=== PATIENT | male | born 1955 | race Caucasian/White ===

== ENCOUNTER 2018-07-04 14:42 | Inpatient (IN) | payer MEDICARE, MEDICAID ==
[2018-07-04] MEDS: SODIUM CHLORIDE 0.9% FLUSH 10 ML SOL IV PRN (15:14)
[2018-07-04 15:45] LABS: ABG PH 7.56 (7.35-7.45)
[2018-07-04 15:49] LABS: HEMATOCRIT 38 % (39-53); HEMOGLOBIN 12.8 gm/dl (13.5-17.7); MEAN CORPUSCULAR HEMOGLOBIN 28.2 pg (27.0-32.0); MEAN CORPUSCULAR HGB CONC 33.7 gm/dl (32.0-36.0); MEAN CORPUSCULAR VOLUME 84 fL (80-100)
[2018-07-04 15:52] LABS: ALBUMIN 1.6 gm/dl (3.4-5.0); ALKALINE PHOSPHATASE 156 IU/L (46-116); ALT 61 IU/L (14-63); AST 82 IU/L (15-37); BILIRUBIN,TOTAL 1.1 mg/dl (0.2-1.0); BLOOD UREA NITROGEN 24 mg/dl (7-18); CALCIUM 8.6 mg/dl (8.5-10.1); CARBON DIOXIDE 27.8 mEq/L (21-32); CHLORIDE 91 mMol/L (98-107); CREATININE 1.08 mg/dl (0.80-1.30); GLUCOSE 122 mg/dl (74-106); POTASSIUM 4.4 mMol/L (3.5-5.1); SODIUM 127 mMol/L (136-145); TOTAL PROTEIN 7.2 gm/dl (6.4-8.2); TROP I < 0.017 ng/ml (0.000-0.056)
[2018-07-04 15:55] LABS: LACTIC ACID 2.9 mMol/L (0.0-2.0)
[2018-07-04] MEDS ORDERED: DEXTROSE/SALINE 0.9% 1,000 ML IV ONE (16:33)
[2018-07-04 16:35] LABS: ANISOCYTOSIS SLIGHT; BAND NEUTROPHILS % (MANUAL) 2 %; BASOPHILS % (MANUAL) 0 % (0-3); EOSINOPHILS % (MANUAL) 0 % (0-9); LYMPHOCYTES % (MANUAL) 2 % (10-50); MONOCYTES % (MANUAL) 5 % (0-12); NEUTROPHILS % (MANUAL) 91 % (37-80)
[2018-07-04] MEDS ORDERED: AZITHROMYCIN 500 MG PDS 500 MG in SODIUM CHLORIDE 0.9% 250 ML 250 ML IV SCH (16:45)
[2018-07-04] MEDS ORDERED: CEFTRIAXONE 1 GM PDS 1 GM in SODIUM CHLORIDE 0.9% 50 ML 50 ML IV SCH (17:30)
[2018-07-04] MEDS ORDERED: SODIUM CHLORIDE 0.9% 250 ML 250 ML IV ONE (17:45)
[2018-07-04] MEDS ORDERED: AZITHROMYCIN 500 MG PDS IV ONE (17:45)
[2018-07-04] MEDS ORDERED: SODIUM CHLORIDE 0.9% 50 ML 50 ML IV ONE (19:16)
[2018-07-04] MEDS ORDERED: CEFTRIAXONE 1 GM PDS ONE (19:16)
[2018-07-04] MEDS: ACETAMINOPHEN 500 MG 500 MG TAB PO PRN (20:59)
[2018-07-04] MEDS: SODIUM CHLORIDE 0.9% 1000ML 1,000 ML IV SCH (20:59)
[2018-07-04] MEDS: ALBUTEROL/IPRATROPIUM 1 VIAL SOL INH SCH (21:00)
[2018-07-04] MEDS ORDERED: Non-Formulary Medication MISC (Flecainide Acetate 50 mg) PO SCH (21:00)
[2018-07-04] MEDS: SOLUMEDROL 125 MG/2 ML 125 MG/2 ML PDS IV SCH (21:00)
[2018-07-04] MEDS: DOXYCYCLINE 100 MG TAB PO SCH (21:01)
[2018-07-04] MEDS: LORAZEPAM 0.5 MG TAB PO PRN (21:04)
[2018-07-04] MEDS ORDERED: CODEINE/GUAIFENESIN 5 ML ML ONE (21:15)
[2018-07-04] MEDS: CODEINE/GUAIFENESIN 5 ML ML PO PRN (21:38)
[2018-07-04 22:39] LABS: ABG PH 7.51 (7.35-7.45)
[2018-07-04 22:42] LABS: CALCIUM 7.6 mg/dl (8.5-10.1); CARBON DIOXIDE 23.4 mEq/L (21-32); CREATININE 0.93 mg/dl (0.80-1.30); POTASSIUM 3.7 mMol/L (3.5-5.1)
[2018-07-05] MEDS: ALBUTEROL/IPRATROPIUM 1 VIAL SOL INH SCH ×4 (02:40→20:38)
[2018-07-05] MEDS: SOLUMEDROL 125 MG/2 ML 125 MG/2 ML PDS IV SCH ×4 (02:41→20:41)
[2018-07-05] MEDS: CODEINE/GUAIFENESIN 5 ML ML PO PRN ×2 (04:31→22:14)
[2018-07-05] MEDS: SODIUM CHLORIDE 0.9% FLUSH 10 ML SOL IV PRN (04:55)
[2018-07-05] MEDS: SODIUM CHLORIDE 0.9% 1000ML 1,000 ML IV SCH ×3 (06:37→22:16)
[2018-07-05 07:21] LABS: CALCIUM 7.6 mg/dl (8.5-10.1); CARBON DIOXIDE 26.2 mEq/L (21-32); CREATININE 0.7 mg/dl (0.80-1.30); POTASSIUM 3.8 mMol/L (3.5-5.1)
[2018-07-05 07:27] LABS: HEMATOCRIT 31 % (39-53); MEAN CORPUSCULAR HEMOGLOBIN 27.9 pg (27.0-32.0); MEAN CORPUSCULAR HGB CONC 32.8 gm/dl (32.0-36.0); MEAN CORPUSCULAR VOLUME 85 fL (80-100)
[2018-07-05 08:10] LABS: BAND NEUTROPHILS % (MANUAL) 26 %; BASOPHILS % (MANUAL) 0 % (0-3); BURR CELLS PRESENT; EOSINOPHILS % (MANUAL) 0 % (0-9); LYMPHOCYTES % (MANUAL) 2 % (10-50); MONOCYTES % (MANUAL) 7 % (0-12); NEUTROPHILS % (MANUAL) 65 % (37-80); PLATELET MORPHOLOGY COMMENT RARE GIANT FORMS; POIKILOCYTOSIS SLIGHT AMT
[2018-07-05] MEDS ORDERED: ENOXAPARIN 40 MG SOL SC SCH ×2 (09:00→21:00)
[2018-07-05] MEDS ORDERED: CEFTRIAXONE 1 GM PDS 1 GM in SODIUM CHLORIDE 0.9% 50 ML 50 ML IV SCH (09:00)
[2018-07-05] MEDS ORDERED: CEFTRIAXONE 1 GM PDS ONE ×2 (09:14→18:44)
[2018-07-05] MEDS ORDERED: SODIUM CHLORIDE 0.9% 50 ML 50 ML IV ONE ×2 (09:14→18:44)
[2018-07-05] MEDS: ASPIRIN 325 MG TAB PO SCH (09:38)
[2018-07-05] MEDS: DOXYCYCLINE 100 MG TAB PO SCH ×2 (09:38→20:41)
[2018-07-05] MEDS: FLECAINIDE ACETATE 50 MG TAB PO SCH ×2 (09:38→20:42)
[2018-07-05] MEDS: LORAZEPAM 0.5 MG TAB PO PRN ×2 (09:46→21:27)
[2018-07-05] MEDS: SODIUM CHLORIDE 0.9% FLUSH 10 ML SOL IV SCH ×2 (13:45→20:59)
[2018-07-05] MEDS: ACETAMINOPHEN 500 MG 500 MG TAB PO PRN (15:15)
[2018-07-05] MEDS: CEFTRIAXONE 1 GM PDS 1 GM in SODIUM CHLORIDE 0.9% 50 ML 50 ML IV SCH (18:50)
[2018-07-05] MEDS: ENOXAPARIN 40 MG SOL SC SCH (21:26)
[2018-07-06] MEDS: SOLUMEDROL 125 MG/2 ML 125 MG/2 ML PDS IV SCH ×4 (02:56→20:38)
[2018-07-06] MEDS: ALBUTEROL/IPRATROPIUM 1 VIAL SOL INH SCH ×4 (02:56→20:26)
[2018-07-06] MEDS: SODIUM CHLORIDE 0.9% 1000ML 1,000 ML IV SCH ×4 (05:09→18:46)
[2018-07-06] MEDS: CODEINE/GUAIFENESIN 5 ML ML PO PRN ×2 (06:02→22:24)
[2018-07-06] MEDS: SODIUM CHLORIDE 0.9% FLUSH 10 ML SOL IV SCH ×3 (07:14→20:49)
[2018-07-06 07:31] LABS: CALCIUM 7.4 mg/dl (8.5-10.1); CARBON DIOXIDE 23.2 mEq/L (21-32); CREATININE 0.63 mg/dl (0.80-1.30); HEMATOCRIT 29 % (39-53); HEMOGLOBIN 9.7 gm/dl (13.5-17.7); MEAN CORPUSCULAR HEMOGLOBIN 28.1 pg (27.0-32.0); MEAN CORPUSCULAR HGB CONC 33.5 gm/dl (32.0-36.0); MEAN CORPUSCULAR VOLUME 84 fL (80-100); POTASSIUM 3.5 mMol/L (3.5-5.1)
[2018-07-06 08:21] LABS: ANISOCYTOSIS SLIGHT; BAND NEUTROPHILS % (MANUAL) 3 %; BASOPHILS % (MANUAL) 0 % (0-3); EOSINOPHILS % (MANUAL) 0 % (0-9); LYMPHOCYTES % (MANUAL) 4 % (10-50); MONOCYTES % (MANUAL) 2 % (0-12); NEUTROPHILS % (MANUAL) 91 % (37-80)
[2018-07-06] MEDS: DOXYCYCLINE 100 MG TAB PO SCH ×2 (09:09→20:38)
[2018-07-06] MEDS: ASPIRIN 325 MG TAB PO SCH (09:09)
[2018-07-06] MEDS: FLECAINIDE ACETATE 50 MG TAB PO SCH ×2 (09:09→20:38)
[2018-07-06] MEDS: LORAZEPAM 0.5 MG TAB PO PRN ×2 (09:28→22:34)
[2018-07-06] MEDS ORDERED: SODIUM CHLORIDE 0.9% 50 ML 50 ML IV ONE (17:23)
[2018-07-06] MEDS ORDERED: CEFTRIAXONE 1 GM PDS ONE (17:23)
[2018-07-06] MEDS: CEFTRIAXONE 1 GM PDS 1 GM in SODIUM CHLORIDE 0.9% 50 ML 50 ML IV SCH (17:31)
[2018-07-06] MEDS: ENOXAPARIN 40 MG SOL SC SCH (20:35)
[2018-07-07] MEDS: SODIUM CHLORIDE 0.9% 1000ML 1,000 ML IV SCH ×2 (02:01→22:29)
[2018-07-07] MEDS: ALBUTEROL/IPRATROPIUM 1 VIAL SOL INH SCH ×4 (02:11→20:12)
[2018-07-07] MEDS: SOLUMEDROL 125 MG/2 ML 125 MG/2 ML PDS IV SCH ×4 (02:21→20:11)
[2018-07-07] MEDS: ALBUTEROL NEB SOL 2.5MG/3ML 1 VIAL SOL NEB PRN ×2 (04:12→13:26)
[2018-07-07] MEDS: CODEINE/GUAIFENESIN 5 ML ML PO PRN ×2 (04:33→20:32)
[2018-07-07] MEDS: SODIUM CHLORIDE 0.9% FLUSH 10 ML SOL IV SCH ×4 (05:20→22:38)
[2018-07-07 07:11] LABS: *FOLATE 4.2 ng/mL (2.6-20.0)
[2018-07-07] MEDS: SODIUM CHLORIDE 0.9% FLUSH 10 ML SOL IV PRN ×2 (08:33→20:14)
[2018-07-07] MEDS: FLECAINIDE ACETATE 50 MG TAB PO SCH ×2 (08:34→20:13)
[2018-07-07] MEDS: ASPIRIN 325 MG TAB PO SCH (08:34)
[2018-07-07] MEDS: DOXYCYCLINE 100 MG TAB PO SCH ×2 (08:34→20:13)
[2018-07-07] MEDS ORDERED: SODIUM CHLORIDE 0.9% FLUSH 10 ML SOL IV PRN (09:32)
[2018-07-07] MEDS: CLONAZEPAM 0.5 MG TAB PO PRN ×2 (10:27→20:32)
[2018-07-07] MEDS ORDERED: SODIUM CHLORIDE 0.9% 50 ML 50 ML IV ONE (17:03)
[2018-07-07] MEDS ORDERED: CEFTRIAXONE 1 GM PDS ONE (17:03)
[2018-07-07] MEDS: CEFTRIAXONE 1 GM PDS 1 GM in SODIUM CHLORIDE 0.9% 50 ML 50 ML IV SCH (17:22)
[2018-07-07 18:39] LABS: *ALBUMIN % SEE SCAN REPORT; *ELP TOTAL PROTEIN SEE SCAN REPORT
[2018-07-07] MEDS: ENOXAPARIN 40 MG SOL SC SCH (20:14)
[2018-07-07 20:15] LABS: ABO A; ANTIBODY SCREEN Negative; RH TYPE Negative; UNIT TYPE A NEGATIVE
[2018-07-07 20:16] LABS: UNIT TYPE A NEGATIVE
[2018-07-07] MEDS: SODIUM CHLORIDE 0.9% 500 ML 500 ML IV SCH (21:11)
[2018-07-07] MEDS: FUROSEMIDE 40 MG SOL IV SCH (23:23)
[2018-07-08] MEDS: ALBUTEROL NEB SOL 2.5MG/3ML 1 VIAL SOL NEB PRN ×2 (00:16→16:52)
[2018-07-08] MEDS: SOLUMEDROL 125 MG/2 ML 125 MG/2 ML PDS IV SCH ×4 (02:20→22:20)
[2018-07-08] MEDS: FUROSEMIDE 40 MG SOL IV SCH (02:20)
[2018-07-08] MEDS: ALBUTEROL/IPRATROPIUM 1 VIAL SOL INH SCH ×4 (02:23→20:18)
[2018-07-08] MEDS: CODEINE/GUAIFENESIN 5 ML ML PO PRN ×2 (05:05→20:34)
[2018-07-08] MEDS: SODIUM CHLORIDE 0.9% FLUSH 10 ML SOL IV SCH ×3 (05:11→22:20)
[2018-07-08] MEDS: ASPIRIN 325 MG TAB PO SCH (09:57)
[2018-07-08] MEDS: DOXYCYCLINE 100 MG TAB PO SCH ×2 (09:57→20:24)
[2018-07-08] MEDS: FLECAINIDE ACETATE 50 MG TAB PO SCH ×2 (09:57→20:24)
[2018-07-08] MEDS: SODIUM CHLORIDE 0.9% FLUSH 10 ML SOL IV PRN (09:58)
[2018-07-08] MEDS: CLONAZEPAM 0.5 MG TAB PO PRN ×2 (10:02→20:34)
[2018-07-08] MEDS: VENLAFAXINE ER 37.5 MG CAPSULE PO SCH (12:48)
[2018-07-08] MEDS: SODIUM CHLORIDE 0.9% 500 ML 500 ML IV SCH (17:40)
[2018-07-08] MEDS ORDERED: CEFTRIAXONE 1 GM PDS ONE (17:41)
[2018-07-08] MEDS ORDERED: SODIUM CHLORIDE 0.9% 50 ML 50 ML IV ONE (17:41)
[2018-07-08] MEDS: CEFTRIAXONE 1 GM PDS 1 GM in SODIUM CHLORIDE 0.9% 50 ML 50 ML IV SCH (17:49)
[2018-07-08] MEDS: ENOXAPARIN 40 MG SOL SC SCH ×2 (20:23→20:40)
[2018-07-09] MEDS: ALBUTEROL/IPRATROPIUM 1 VIAL SOL INH SCH ×4 (02:21→20:51)
[2018-07-09] MEDS: ALBUTEROL NEB SOL 2.5MG/3ML 1 VIAL SOL NEB PRN ×2 (05:17→11:38)
[2018-07-09] MEDS: SODIUM CHLORIDE 0.9% FLUSH 10 ML SOL IV SCH ×5 (05:19→21:58)
[2018-07-09] MEDS: ASPIRIN 325 MG TAB PO SCH (08:41)
[2018-07-09] MEDS: DOXYCYCLINE 100 MG TAB PO SCH ×2 (08:42→20:50)
[2018-07-09] MEDS: FLECAINIDE ACETATE 50 MG TAB PO SCH ×2 (08:42→20:50)
[2018-07-09] MEDS: VENLAFAXINE ER 37.5 MG CAPSULE PO SCH (08:43)
[2018-07-09] MEDS: CLONAZEPAM 0.5 MG TAB PO PRN (08:47)
[2018-07-09] MEDS: SOLUMEDROL 125 MG/2 ML 125 MG/2 ML PDS IV SCH ×2 (10:24→21:58)
[2018-07-09] MEDS: CLONAZEPAM 0.5 MG TAB PO SCH ×2 (14:12→21:58)
[2018-07-09 14:27] LABS: *VITAMIN B12 642 pg/mL (211-911)
[2018-07-09] MEDS ORDERED: MENTHOLATUM TOP SCH (17:00)
[2018-07-09] MEDS ORDERED: SODIUM CHLORIDE 0.9% 50 ML 50 ML IV ONE (17:43)
[2018-07-09] MEDS ORDERED: CEFTRIAXONE 1 GM PDS ONE (17:43)
[2018-07-09] MEDS: CEFTRIAXONE 1 GM PDS 1 GM in SODIUM CHLORIDE 0.9% 50 ML 50 ML IV SCH (17:57)
[2018-07-09] MEDS: ENOXAPARIN 40 MG SOL SC SCH (20:51)
[2018-07-09] MEDS: CODEINE/GUAIFENESIN 5 ML ML PO PRN (21:08)
[2018-07-10] MEDS: ALBUTEROL NEB SOL 2.5MG/3ML 1 VIAL SOL NEB PRN (00:49)
[2018-07-10] MEDS: ALBUTEROL/IPRATROPIUM 1 VIAL SOL INH SCH ×4 (04:16→20:27)
[2018-07-10] MEDS: CLONAZEPAM 0.5 MG TAB PO SCH ×3 (06:55→22:23)
[2018-07-10] MEDS: SODIUM CHLORIDE 0.9% FLUSH 10 ML SOL IV SCH ×4 (06:55→22:23)
[2018-07-10] MEDS: ASPIRIN 325 MG TAB PO SCH (08:30)
[2018-07-10] MEDS: DOXYCYCLINE 100 MG TAB PO SCH ×2 (08:31→20:26)
[2018-07-10] MEDS: FLECAINIDE ACETATE 50 MG TAB PO SCH ×2 (08:31→20:26)
[2018-07-10] MEDS: SOLUMEDROL 125 MG/2 ML 125 MG/2 ML PDS IV SCH ×2 (11:26→22:23)
[2018-07-10] MEDS ORDERED: CEFTRIAXONE 1 GM PDS ONE (18:09)
[2018-07-10] MEDS ORDERED: SODIUM CHLORIDE 0.9% 50 ML 50 ML IV ONE (18:10)
[2018-07-10] MEDS: CEFTRIAXONE 1 GM PDS 1 GM in SODIUM CHLORIDE 0.9% 50 ML 50 ML IV SCH (18:18)
[2018-07-10] MEDS: ENOXAPARIN 40 MG SOL SC SCH (20:27)
[2018-07-10] MEDS: CODEINE/GUAIFENESIN 5 ML ML PO PRN (20:50)
[2018-07-11] MEDS: ALBUTEROL/IPRATROPIUM 1 VIAL SOL INH SCH ×4 (02:39→21:09)
[2018-07-11] MEDS: ALBUTEROL NEB SOL 2.5MG/3ML 1 VIAL SOL NEB PRN ×2 (04:58→18:24)
[2018-07-11] MEDS: SODIUM CHLORIDE 0.9% FLUSH 10 ML SOL IV SCH ×3 (04:58→21:08)
[2018-07-11] MEDS: CLONAZEPAM 0.5 MG TAB PO SCH ×3 (06:19→21:39)
[2018-07-11] MEDS: ASPIRIN 325 MG TAB PO SCH (08:25)
[2018-07-11] MEDS: DOXYCYCLINE 100 MG TAB PO SCH ×2 (08:25→21:08)
[2018-07-11] MEDS: FUROSEMIDE 20 MG TAB PO SCH (10:52)
[2018-07-11] MEDS: PREDNISONE 20 MG TAB PO SCH (10:52)
[2018-07-11 10:55] LABS: *FERRITIN 1068.2
[2018-07-11] MEDS: ACETAMINOPHEN 500 MG 500 MG TAB PO PRN (13:49)
[2018-07-11] MEDS: FLECAINIDE ACETATE 50 MG TAB PO SCH (15:14)
[2018-07-11] MEDS ORDERED: SODIUM CHLORIDE 0.9% 50 ML 50 ML IV ONE (17:23)
[2018-07-11] MEDS ORDERED: CEFTRIAXONE 1 GM PDS ONE (17:23)
[2018-07-11] MEDS: CEFTRIAXONE 1 GM PDS 1 GM in SODIUM CHLORIDE 0.9% 50 ML 50 ML IV SCH (17:38)
[2018-07-11] MEDS: ENOXAPARIN 40 MG SOL SC SCH (21:07)
[2018-07-11] MEDS: FAMOTIDINE 20 MG TAB PO SCH (21:08)
[2018-07-12] MEDS: FLECAINIDE ACETATE 50 MG TAB PO SCH ×2 (00:13→08:14)
[2018-07-12] MEDS: ALBUTEROL NEB SOL 2.5MG/3ML 1 VIAL SOL NEB PRN (00:21)
[2018-07-12] MEDS: ALBUTEROL/IPRATROPIUM 1 VIAL SOL INH SCH ×2 (02:48→08:31)
[2018-07-12] MEDS: SODIUM CHLORIDE 0.9% FLUSH 10 ML SOL IV PRN (03:06)
[2018-07-12] MEDS: SODIUM CHLORIDE 0.9% FLUSH 10 ML SOL IV SCH (05:07)
[2018-07-12] MEDS: CLONAZEPAM 0.5 MG TAB PO SCH (06:23)
[2018-07-12 07:17] LABS: CALCIUM 7.5 mg/dl (8.5-10.1); CARBON DIOXIDE 30.5 mEq/L (21-32); CREATININE 0.68 mg/dl (0.80-1.30); POTASSIUM 3.5 mMol/L (3.5-5.1)
[2018-07-12 07:23] LABS: HEMATOCRIT 40 % (39-53); HEMOGLOBIN 13.2 gm/dl (13.5-17.7); MEAN CORPUSCULAR HEMOGLOBIN 28.1 pg (27.0-32.0); MEAN CORPUSCULAR HGB CONC 32.6 gm/dl (32.0-36.0); MEAN CORPUSCULAR VOLUME 86 fL (80-100)
[2018-07-12 07:36] LABS: BAND NEUTROPHILS % (MANUAL) 4 %; BASOPHILS % (MANUAL) 0 % (0-3); EOSINOPHILS % (MANUAL) 2 % (0-9); LYMPHOCYTES % (MANUAL) 2 % (10-50); MONOCYTES % (MANUAL) 2 % (0-12); NEUTROPHILS % (MANUAL) 90 % (37-80); NORMAL RBCS PRESENT
[2018-07-12 08:02] VITALS: BP 128/75; TEMP 98
[2018-07-12] MEDS: FUROSEMIDE 20 MG TAB PO SCH (08:15)
[2018-07-12] MEDS: ASPIRIN 325 MG TAB PO SCH (08:15)
[2018-07-12] MEDS: DOXYCYCLINE 100 MG TAB PO SCH (08:16)
[2018-07-12] MEDS: FAMOTIDINE 20 MG TAB PO SCH (08:16)
[2018-07-12] MEDS: PREDNISONE 20 MG TAB PO SCH (08:17)
[2018-07-12 08:32] VITALS: PULSE 72; RESP 20
[2018-07-12 08:44] VITALS: O2SAT 90
== END 2018-07-12 11:45 | DRG 194 ==
LOC: ED 14:42 → ACUTE CARE 16:50 → UNDOADMIN 16:50 → ACUTE CARE 17:35
PROVIDERS: ADMIT Family Medicine; ATTEND Family Medicine
PROC: F01L0FZ Muscle Performance Assessment of Musculoskeletal System - Lower Back / Lower Extremity using Assistive, Adaptive, Supportive or Protective Equipment (ICD-10-PCS; principal; 2018-07-07)
PROC: F0130FZ Muscle Performance Assessment of Neurological System - Whole Body using Assistive, Adaptive, Supportive or Protective Equipment (ICD-10-PCS; 2018-07-07)
PROC: 30233N1 Transfusion of Nonautologous Red Blood Cells into Peripheral Vein, Percutaneous Approach (ICD-10-PCS; 2018-07-07)
DX: J18.1 Lobar pneumonia, unspecified organism (principal); R05 Cough; I47.1 Supraventricular tachycardia; J44.9 Chronic obstructive pulmonary disease, unspecified; R07.9 Chest pain, unspecified; R06.02 Shortness of breath; F41.8 Other specified anxiety disorders; D64.9 Anemia, unspecified
CPT/HCPCS: 36415; 36600; 71045; 80048; 80053; 82803; 83880; 84484; 85007; 85018; 85027; 86850; 86900; 86901; 86920; 87040; 87070; 87205; 93005; 93012; 94150; 94640; 94669; 94762; 96365; 99070; 99283; 99284; J0456; J0696; J1650; J1940; J2930; J7613; P9016; A9270-GY

== ENCOUNTER 2018-12-27 12:11 | Inpatient (IN) | payer MEDICARE, OTHER ==
[2018-12-27 12:29] LABS: BASOPHILS % (AUTO) 0 % (0-3); EOSINOPHILS % (AUTO) 0 % (0-9); HEMATOCRIT 37 % (39-53); HEMOGLOBIN 12.4 gm/dl (13.5-17.7); LYMPHOCYTES % (AUTO) 7.2 % (10-50); MEAN CORPUSCULAR HEMOGLOBIN 27.9 pg (27.0-32.0); MEAN CORPUSCULAR HGB CONC 33.2 gm/dl (32.0-36.0); MEAN CORPUSCULAR VOLUME 84 fL (80-100); MONOCYTES % (AUTO) 2.6 % (0-12); NEUTROPHILS % (AUTO) 89.9 % (37-80)
[2018-12-27 12:35] LABS: CALCIUM 9.3 mg/dl (8.5-10.1); CARBON DIOXIDE 29.5 mEq/L (21-32); CREATININE 1.81 mg/dl (0.80-1.30)
[2018-12-27 12:36] LABS: POTASSIUM 2.7 mMol/L (3.5-5.1)
[2018-12-27] MEDS ORDERED: SODIUM CHLORIDE 0.9% 1000ML 1,000 ML IV ONE (13:25)
[2018-12-27] MEDS ORDERED: POTASSIUM CHLORIDE 2 MEQ/ML 60 MEQ, LIDOCAINE HCL 1% MDV 2 ML in SODIUM CHLORIDE 0.9% 1... IV ONE (13:25)
[2018-12-27] MEDS ORDERED: CLONAZEPAM 0.5 MG TAB PO ONE (13:42)
[2018-12-27] MEDS ORDERED: POTASSIUM CHLORIDE 2 MEQ/ML SOL IV ONE (13:46)
[2018-12-27] MEDS ORDERED: LIDOCAINE HCL 1% MPF 30 SOL ONE (14:04)
[2018-12-27] MEDS ORDERED: ERTAPENEM SODIUM 1 GM PDS ONE (15:33)
[2018-12-27] MEDS ORDERED: SODIUM CHLORIDE 0.9% 50 ML 50 ML IV ONE (15:33)
[2018-12-27] MEDS: ERTAPENEM SODIUM 1 GM PDS 1 GM in SODIUM CHLORIDE 0.9% 50 ML 50 ML IV SCH (15:41)
[2018-12-27] MEDS ORDERED: ALBUTEROL/IPRATROPIUM 1 VIAL SOL INH SCH ×2 (17:00→21:00)
[2018-12-27] MEDS ORDERED: FUROSEMIDE 40 MG TAB PO PRN (18:04)
[2018-12-27] MEDS ORDERED: ALBUTEROL SULFATE 120 PUFF/17 GM ARO INH SCH ×2 (18:45→21:00)
[2018-12-27] MEDS ORDERED: ALBUTEROL HFA 60 PUFF/INHALER INH PRN (18:58)
[2018-12-27] MEDS: ALBUTEROL/IPRATROPIUM 1 VIAL SOL INH SCH (20:26)
[2018-12-27] MEDS ORDERED: RANITIDINE HCL 150 MG TAB PO SCH (21:00)
[2018-12-27] MEDS: Non-Formulary Medication MISC (Flecainide Acetate 50 mg) PO SCH (21:58)
[2018-12-27] MEDS: CLONAZEPAM 0.5 MG TAB PO PRN (21:58)
[2018-12-28] MEDS: ALBUTEROL NEB SOL 2.5MG/3ML 1 VIAL SOL NEB PRN ×2 (00:51→06:07)
[2018-12-28] MEDS: ACETAMINOPHEN 325 MG PO PRN ×4 (01:33→23:40)
[2018-12-28] MEDS: FAMOTIDINE 20 MG TAB PO SCH ×2 (06:07→17:21)
[2018-12-28 07:20] LABS: CALCIUM 8.2 mg/dl (8.5-10.1); CARBON DIOXIDE 26.3 mEq/L (21-32); CREATININE 1.25 mg/dl (0.80-1.30)
[2018-12-28] MEDS: ALBUTEROL/IPRATROPIUM 1 VIAL SOL INH SCH ×4 (08:21→21:15)
[2018-12-28] MEDS ORDERED: SODIUM CHLORIDE 0.9% 50 ML 50 ML IV ONE (10:31)
[2018-12-28] MEDS ORDERED: ERTAPENEM SODIUM 1 GM PDS ONE (10:31)
[2018-12-28] MEDS: ERTAPENEM SODIUM 1 GM PDS 1 GM in SODIUM CHLORIDE 0.9% 50 ML 50 ML IV SCH (10:42)
[2018-12-28] MEDS: POTASSIUM CHLORIDE 10 MEQ TER PO SCH ×2 (10:43→21:19)
[2018-12-28] MEDS: Non-Formulary Medication MISC (Flecainide Acetate 50 mg) PO SCH ×2 (10:44→21:19)
[2018-12-28] MEDS: CLONAZEPAM 0.5 MG TAB PO PRN ×2 (10:56→21:44)
[2018-12-28] MEDS: SODIUM CHLORIDE 0.9% FLUSH 10 ML SOL IV SCH ×2 (11:21→21:20)
[2018-12-29] MEDS: SODIUM CHLORIDE 0.9% FLUSH 10 ML SOL IV SCH ×4 (03:53→21:08)
[2018-12-29] MEDS: FAMOTIDINE 20 MG TAB PO SCH ×2 (07:18→17:19)
[2018-12-29] MEDS: ACETAMINOPHEN 325 MG PO PRN ×2 (07:40→19:57)
[2018-12-29] MEDS ORDERED: SODIUM CHLORIDE 0.9% 50 ML 50 ML IV ONE (08:53)
[2018-12-29] MEDS ORDERED: ERTAPENEM SODIUM 1 GM PDS ONE (08:53)
[2018-12-29] MEDS ORDERED: FUROSEMIDE 40 MG TAB PO SCH (09:00)
[2018-12-29] MEDS: ERTAPENEM SODIUM 1 GM PDS 1 GM in SODIUM CHLORIDE 0.9% 50 ML 50 ML IV SCH (09:01)
[2018-12-29] MEDS: POTASSIUM CHLORIDE 10 MEQ TER PO SCH ×2 (09:01→21:03)
[2018-12-29] MEDS: Non-Formulary Medication MISC (Flecainide Acetate 50 mg) PO SCH ×2 (09:02→21:02)
[2018-12-29] MEDS: CLONAZEPAM 0.5 MG TAB PO PRN ×2 (09:35→21:03)
[2018-12-29] MEDS: ALBUTEROL/IPRATROPIUM 1 VIAL SOL INH SCH ×4 (09:37→21:05)
[2018-12-30] MEDS: ACETAMINOPHEN 325 MG PO PRN ×2 (04:03→10:07)
[2018-12-30] MEDS: SODIUM CHLORIDE 0.9% FLUSH 10 ML SOL IV SCH ×4 (04:03→21:00)
[2018-12-30] MEDS: FAMOTIDINE 20 MG TAB PO SCH ×2 (07:00→16:42)
[2018-12-30 07:59] LABS: CALCIUM 8.1 mg/dl (8.5-10.1); CARBON DIOXIDE 27.7 mEq/L (21-32); CREATININE 0.73 mg/dl (0.80-1.30); POTASSIUM 4.4 mMol/L (3.5-5.1)
[2018-12-30 08:01] LABS: BASOPHILS % (AUTO) 0 % (0-3); EOSINOPHILS % (AUTO) 1 % (0-9); HEMATOCRIT 29 % (39-53); HEMOGLOBIN 9.8 gm/dl (13.5-17.7); LYMPHOCYTES % (AUTO) 7.1 % (10-50); MEAN CORPUSCULAR HEMOGLOBIN 29.1 pg (27.0-32.0); MEAN CORPUSCULAR HGB CONC 34.1 gm/dl (32.0-36.0); MEAN CORPUSCULAR VOLUME 85 fL (80-100); MONOCYTES % (AUTO) 4.9 % (0-12)
[2018-12-30] MEDS: ALBUTEROL/IPRATROPIUM 1 VIAL SOL INH SCH ×4 (08:05→20:35)
[2018-12-30] MEDS ORDERED: PREDNISONE 20 MG TAB PO SCH (09:00)
[2018-12-30] MEDS: Non-Formulary Medication MISC (Flecainide Acetate 50 mg) PO SCH ×2 (09:38→21:00)
[2018-12-30] MEDS: POTASSIUM CHLORIDE 10 MEQ TER PO SCH ×2 (09:39→21:00)
[2018-12-30] MEDS ORDERED: ERTAPENEM SODIUM 1 GM PDS ONE (09:43)
[2018-12-30] MEDS ORDERED: SODIUM CHLORIDE 0.9% 50 ML 50 ML IV ONE (09:44)
[2018-12-30] MEDS: SOLUMEDROL 125 MG/2 ML 125 MG/2 ML PDS IV SCH ×2 (09:45→13:34)
[2018-12-30] MEDS: ERTAPENEM SODIUM 1 GM PDS 1 GM in SODIUM CHLORIDE 0.9% 50 ML 50 ML IV SCH (09:46)
[2018-12-30] MEDS: CLONAZEPAM 0.5 MG TAB PO PRN ×2 (10:07→21:05)
[2018-12-30] MEDS: CLOTRIMAZOLE 1% CREAM TOP SCH (21:09)
[2018-12-31 04:34] VITALS: TEMP 97.7
[2018-12-31] MEDS: SODIUM CHLORIDE 0.9% FLUSH 10 ML SOL IV SCH (04:34)
[2018-12-31] MEDS: FAMOTIDINE 20 MG TAB PO SCH (06:49)
[2018-12-31 07:18] LABS: BASOPHILS % (AUTO) 0 % (0-3); EOSINOPHILS % (AUTO) 0 % (0-9); HEMATOCRIT 27 % (39-53); HEMOGLOBIN 9.4 gm/dl (13.5-17.7); LYMPHOCYTES % (AUTO) 4.2 % (10-50); MEAN CORPUSCULAR HEMOGLOBIN 29.3 pg (27.0-32.0); MEAN CORPUSCULAR HGB CONC 34.5 gm/dl (32.0-36.0); MEAN CORPUSCULAR VOLUME 85 fL (80-100); MONOCYTES % (AUTO) 2.2 % (0-12); NEUTROPHILS % (AUTO) 93.4 % (37-80)
[2018-12-31 07:31] LABS: CALCIUM 8.2 mg/dl (8.5-10.1); CARBON DIOXIDE 26.6 mEq/L (21-32); CREATININE 0.63 mg/dl (0.80-1.30); POTASSIUM 4.2 mMol/L (3.5-5.1)
[2018-12-31 08:02] VITALS: BP 104/68; O2SAT 97
[2018-12-31] MEDS: ALBUTEROL/IPRATROPIUM 1 VIAL SOL INH SCH ×2 (08:13→12:56)
[2018-12-31] MEDS ORDERED: PREDNISONE 20 MG TAB PO SCH (09:00)
[2018-12-31] MEDS ORDERED: LEVOFLOXACIN 500 MG TAB PO SCH (09:00)
[2018-12-31 09:17] VITALS: PULSE 94; RESP 22
[2018-12-31] MEDS: ACETAMINOPHEN 325 MG PO PRN (09:17)
[2018-12-31] MEDS: POTASSIUM CHLORIDE 10 MEQ TER PO SCH (09:18)
[2018-12-31] MEDS: CLONAZEPAM 0.5 MG TAB PO PRN (09:18)
[2018-12-31] MEDS: CLOTRIMAZOLE 1% CREAM TOP SCH (09:20)
[2018-12-31] MEDS: Non-Formulary Medication MISC (Flecainide Acetate 50 mg) PO SCH (09:24)
== END 2018-12-31 13:10 | DRG 194 ==
LOC: ED 12:11 → ACUTE CARE 14:16 → UNDOADMIN 14:16 → ACUTE CARE 14:30
PROVIDERS: ADMIT Family Medicine; ATTEND Family Medicine
PROC: F01K5YZ Range of Motion and Joint Integrity Assessment of Musculoskeletal System - Upper Back / Upper Extremity using Other Equipment (ICD-10-PCS; principal; 2018-12-29)
PROC: F01K0FZ Muscle Performance Assessment of Musculoskeletal System - Upper Back / Upper Extremity using Assistive, Adaptive, Supportive or Protective Equipment (ICD-10-PCS; 2018-12-29)
PROC: F02Z0FZ Bathing/Showering Assessment using Assistive, Adaptive, Supportive or Protective Equipment (ICD-10-PCS; 2018-12-29)
PROC: F02Z3FZ Grooming/Personal Hygiene Assessment using Assistive, Adaptive, Supportive or Protective Equipment (ICD-10-PCS; 2018-12-29)
PROC: F01ZBFZ Bed Mobility Assessment using Assistive, Adaptive, Supportive or Protective Equipment (ICD-10-PCS; 2018-12-29)
DX: J18.1 Lobar pneumonia, unspecified organism (principal); J44.0 Chronic obstructive pulmonary disease with (acute) lower respiratory infection; N17.9 Acute kidney failure, unspecified; R06.02 Shortness of breath; E87.6 Hypokalemia; B35.3 Tinea pedis; M79.672 Pain in left foot; M79.671 Pain in right foot; R53.1 Weakness
CPT/HCPCS: 36415; 71045; 71250; 80048; 83880; 84132; 85018; 85025; 87070; 87205; 93005; 93012; 94150; 94640; 94664; 94669; 99070; 99212; 99231; 99239; 99284; J1335; J2930; J3480; J7613; A6219; A6232; A6402; A9270; A9270-GY; J2001

== ENCOUNTER 2019-03-31 09:46 | Inpatient (IN) | payer MEDICARE, OTHER | END 2019-04-04 14:00 | LOC: ED 09:46 → ACUTE CARE 13:24 ==

== ENCOUNTER 2019-04-16 14:27 | Emergency (ER) | payer MEDICARE, OTHER ==
[2019-04-16 14:57] VITALS: RESP 20; TEMP 97.7
[2019-04-16] MEDS ORDERED: ALBUTEROL/IPRATROPIUM 1 VIAL SOL INH ONE (15:21)
[2019-04-16 15:37] LABS: BASOPHILS % (AUTO) 0 % (0-3); EOSINOPHILS % (AUTO) 0 % (0-9); HEMATOCRIT 28 % (39-53); HEMOGLOBIN 8.8 gm/dl (13.5-17.7); LYMPHOCYTES % (AUTO) 2.3 % (10-50); MEAN CORPUSCULAR HEMOGLOBIN 27.2 pg (27.0-32.0); MEAN CORPUSCULAR HGB CONC 31.6 gm/dl (32.0-36.0); MEAN CORPUSCULAR VOLUME 86 fL (80-100); MONOCYTES % (AUTO) 1.4 % (0-12); NEUTROPHILS % (AUTO) 96.2 % (37-80)
[2019-04-16] MEDS ORDERED: ALBUTEROL/IPRATROPIUM 1 VIAL SOL ONE (15:39)
[2019-04-16 15:43] LABS: CALCIUM 7.5 mg/dl (8.5-10.1); CARBON DIOXIDE 25.2 mEq/L (21-32); CREATININE 0.69 mg/dl (0.80-1.30)
[2019-04-16 16:07] VITALS: PULSE 87; O2SAT 97
[2019-04-16 16:08] VITALS: BP 105/69
[2019-04-16] MEDS ORDERED: LORAZEPAM 0.5 MG TAB PO ONE (16:30)
[2019-04-16] MEDS ORDERED: AZITHROMYCIN 250 MG TAB PO ONE (16:42)
[2019-04-16] MEDS ORDERED: LORAZEPAM 0.5 MG TAB ONE (16:47)
[2019-04-16] MEDS ORDERED: AZITHROMYCIN 250 MG TAB ONE (16:48)
== END 2019-04-16 18:18 | DRG 948 ==
LOC: ED 14:27
DX: R60.0 Localized edema (principal); J20.9 Acute bronchitis, unspecified; R06.02 Shortness of breath; R05 Cough
CPT/HCPCS: 36415; 71045; 80048; 83880; 85025; 99283; A9270-GY